=== PATIENT | female | born 1955 | race Caucasian/White ===

== ENCOUNTER 2017-01-28 15:20 | Emergency (ER) | payer BC | END 2017-01-28 16:12 | disposition home or self-care (01) | DX: S61.211A Laceration without foreign body of left index finger without damage to nail, initial encounter (principal); I10 Essential (primary) hypertension; Y92.009 Unspecified place in unspecified non-institutional (private) residence as the place of occurrence of the external cause; Y93.D9 Activity, other involving arts and handcrafts ==

== ENCOUNTER 2017-08-24 09:43 | Outpatient (CLI) | payer BC ==
[2017-08-24 10:11] LABS: BASOPHILS # (AUTO) 0.1 10^3/uL (0.0-0.1); EOSINOPHILS # (AUTO) 0.1 10^3/uL (0.0-0.7); EOSINOPHILS % (AUTO) 2.1 %; HCT - HEMATOCRIT 35.8 % (37.0-47.0); HGB - HEMOGLOBIN 12.4 g/dL (12.0-16.0); LYMPHOCYTES # (AUTO) 1.1 10^3/uL (1.5-3.5); LYMPHOCYTES % (AUTO) 35.5 %; MEAN CORPUSCULAR HEMOGLOBIN 31.9 pg (27.0-31.0); MEAN CORPUSCULAR HGB CONC 34.5 g/dL (32.0-36.0); MEAN CORPUSCULAR VOLUME 92.3 fL (81.0-99.0); MEAN PLATELET VOLUME 6.5 fL (7.9-10.8); MONOCYTES # (AUTO) 0.2 10^3/uL (0.0-1.0); MONOCYTES % (AUTO) 6.1 %; NEUTROPHILS # (AUTO) 1.6 10^3/uL (1.5-6.6); NEUTROPHILS % (AUTO) 53.3 %; RED BLOOD COUNT 3.88 10^6/uL (4.20-5.40); RED CELL DISTRIBUTION WIDTH 15.6 % (12.0-15.0); UNCORRECTED WHITE BLOOD COUNT 3.1 x10^3/uL; WHITE BLOOD COUNT 3.1 x10^3/uL (4.8-10.8)
== END 2017-08-24 09:44 | disposition home or self-care (01) ==
LOC: LAB 09:43
PROVIDERS: ATTEND Internal Medicine Medical Oncology
DX: C50.911 Malignant neoplasm of unspecified site of right female breast (principal)
CPT/HCPCS: 36415; 85025

== ENCOUNTER 2017-09-29 10:44 | Outpatient (CLI) | payer BC ==
[2017-09-29 11:01] LABS: BASOPHILS # (AUTO) 0.1 10^3/uL (0.0-0.1); BASOPHILS % (AUTO) 4.1 %; EOSINOPHILS # (AUTO) 0.1 10^3/uL (0.0-0.7); EOSINOPHILS % (AUTO) 4.7 %; HGB - HEMOGLOBIN 12.4 g/dL (12.0-16.0); LYMPHOCYTES # (AUTO) 0.9 10^3/uL (1.5-3.5); LYMPHOCYTES % (AUTO) 28.7 %; MEAN CORPUSCULAR HEMOGLOBIN 33.8 pg (27.0-31.0); MEAN CORPUSCULAR HGB CONC 34.5 g/dL (32.0-36.0); MEAN PLATELET VOLUME 6.7 fL (7.9-10.8); MONOCYTES # (AUTO) 0.2 10^3/uL (0.0-1.0); MONOCYTES % (AUTO) 6.6 %; NEUTROPHILS # (AUTO) 1.7 10^3/uL (1.5-6.6); NEUTROPHILS % (AUTO) 55.9 %; RED BLOOD COUNT 3.67 10^6/uL (4.20-5.40); RED CELL DISTRIBUTION WIDTH 20.1 % (12.0-15.0)
[2017-09-29 11:14] LABS: ALBUMIN/GLOBULIN RATIO 1.4 (1.0-2.2); BILIRUBIN,TOTAL 0.6 mg/dL (0.2-1.0); CREATININE 0.8 mg/dL (0.4-1.0); POTASSIUM 3.9 mmol/L (3.5-5.0); TOTAL PROTEIN 7.2 g/dL (6.7-8.2)
== END 2017-09-29 10:45 | disposition home or self-care (01) ==
LOC: LAB 10:44
PROVIDERS: ATTEND Internal Medicine Medical Oncology
DX: C50.919 Malignant neoplasm of unspecified site of unspecified female breast (principal)
CPT/HCPCS: 36415; 80053; 82378; 85025; 86300

== ENCOUNTER 2020-06-11 09:10 | Outpatient (CLI) | payer MEDICARE ==
[2020-06-11 09:34] LABS: CALCIUM 8.7 mg/dL (8.5-10.3); CREATININE 1.3 mg/dL (0.4-1.0)
== END 2020-06-11 09:11 | disposition home or self-care (01) ==
LOC: LAB 09:10
PROVIDERS: ATTEND Internal Medicine Hematology & Oncology
DX: C79.51 Secondary malignant neoplasm of bone (principal)
CPT/HCPCS: 36415; 80048

== ENCOUNTER 2020-06-12 13:15 | Outpatient (CLI) | payer MEDICARE ==
[2020-06-12 14:07] LABS: BILIRUBIN,URINE NEGATIVE (NEGATIVE); GLUCOSE, URINE (UA) NEGATIVE (NEGATIVE); KETONES,URINE (UA) NEGATIVE (NEGATIVE); LEUKOCYTE ESTERASE, URINE NEGATIVE (NEGATIVE); NITRITE,URINE NEGATIVE (NEGATIVE); OCCULT BLOOD,URINE NEGATIVE (NEGATIVE); PH,URINE 6.5 PH (5.0-7.5); PROTEIN,URINE NEGATIVE (NEGATIVE); UROBILINOGEN,URINE 0.2 (NORMAL) E.U./dL (NORMAL)
[2020-06-12 14:14] LABS: BACTERIA,URINE None Seen /HPF (None Seen); CLARITY,URINE CLEAR (CLEAR); RBC,URINE None Seen /HPF (0-5); SQUAMOUS EPITHELIAL CELL,UR NONE SEEN (<= Few)
== END 2020-06-12 13:16 | disposition home or self-care (01) ==
LOC: LAB 13:15
PROVIDERS: ATTEND Internal Medicine Hematology & Oncology
DX: R35.0 Frequency of micturition (principal)
CPT/HCPCS: 81001; 87086

== ENCOUNTER 2020-06-18 09:44 | Outpatient (CLI) | payer MEDICARE ==
[2020-06-18 10:14] LABS: CALCIUM 8.9 mg/dL (8.5-10.3)
== END 2020-06-18 09:45 | disposition home or self-care (01) ==
LOC: LAB 09:44
PROVIDERS: ATTEND Internal Medicine Hematology & Oncology
DX: C79.51 Secondary malignant neoplasm of bone (principal)
CPT/HCPCS: 36415; 80048

== ENCOUNTER 2020-06-24 16:30 | Emergency (ER) | payer MEDICARE ==
[2020-06-24] MEDS: HYDROmorphone 1 MG/ML CARPUJECT IVP STA (18:13)
[2020-06-24] MEDS: SODIUM CHLORIDE 0.9% 1,000 ML IV STA ×2 (18:14)
--- NOTE | 2020-06-24 18:24 | ED Physician Documentation ---
History of Present Illness - Stated complaint Stated Complaint: RX REACTION - Chief complaint Chief Complaint: General - History obtained from History obtained from: Patient, Family - History of Present Illness Timing: Prior to arrival, How many days ago (6) - Additonal information Additional information: 65-year-old female presents to the emergency department for evaluation and treatment of mouth sores that began about 5 days ago. Unfortunately she has a history of breast cancer with metastasis to the bone. She is being treated with an agent called Piqray And received her last infusion on Monday.However over the last 5 days she has developed a shallow ulcerations on the buccal mucosa as well as cracking and peeling of her lips. It is becoming increasingly difficult to eat or swallow secondary to the pain. She denies any cough or fevers. She denies any vaginal discharge or bleeding she has no rectal bleeding. She has no abdominal pain. Does not have any skin rash. Review of Systems Constitutional: denies: Fever, Chills Throat: reports: Oral lesions / sores. denies: Sore throat, Swollen tonsils, Swallowed foreign body Cardiac: reports: Palpitations. 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, Breast cancer : None HEENT: None Psych: Depression Musculoskeletal: None Derm: None - Past Surgical History /NATURALIZATION EXAMINER: section, Other - Present Medications Home Medications: Ambulatory Orders Medication Instructions Recorded Confirmed Atorvastatin Calcium [Lipitor] 40 mg PO 01/28/17 DULoxetine [Cymbalta] 20 mg PO DAILY 01/28/17 01/28/17 Fulvestrant [Faslodex] 250 mg IM ONCE 01/28/17 01/28/17 buPROPion [Wellbutrin Sr] 100 mg PO BID 01/28/17 01/28/17 - Allergies Allergies/Adverse Reactions: Allergies Allergy/AdvReac Type Severity Reaction Status Date / Time No Known Drug Allergies Allergy Verified 03/11/17 15:34 - Social History Does the pt smoke?: No Smoking Status: Never smoker Does the pt have substance abuse?: No - Immunizations Immunizations: TDAP current <10years PD ED PE EXPANDED - General General: Alert, No acute distress - HEENT HEENT: Dry mucous membranes, Pharyngeal erythema, Oral lesions / sores (Multiple shallow ulcerations on the buccal mucosa. Uvula is midline. Posterior oropharynx is erythematous but without exudate. Patient able to swallow normally. Lips on the mouth have a large amount of peeling scabbing and cracking sores.), Other - Neck Neck: Supple w/out meningeal sx. No: Adenopathy - Cardiac Cardiac: Regular Rate, Radial strong equal, Pedal strong equal, Cap refill < 2 sec - Respiratory Respiratory: Clear to ausultation hannah. No: Distress, Labored - Abdomen Abdomen: Normal Bowel sounds. No: Tender to palpation - Female Female : Normal external. No: Vaginal Bleeding, Vaginal Discharge, Tissue present - Back Back: Normal exam. No: Vertebral tenderness, Soft tissue tenderness - Neuro Neuro: Alert and Oriented X 3. No: CNII-XII intact, CN deficit - GCS Eye Opening: Spontaneous Motor: Obeys Commands Verbal: Oriented Total: 15 Results - Vitals Vitals: Vital Signs - 24 hr 06/24/20 06/24/20 06/24/20 16:34 18:16 19:26 Temperature 36.6 C Heart Rate 97 84 86 Respiratory 16 16 16 Rate Blood Pressure 136/65 H 117/63 121/69 O2 Saturation 96 95 96 Oxygen O2 Source Room air PD MEDICAL DECISION MAKING - ED course Complexity details: d/w patient, d/w family ED course: 65-year-old female presents to the emergency department with 5 days of oral lesions and appearance of a stomatitis likely related to the Piqray that she is taking for her metastatic breast cancer. - He has no cough or fevers. She does not have any evidence of other mucosal involvement specifically involving the lungs or the genital tract.In addition there does not appear to be any superimposed yeast or thrush - Because she has been having a difficult time eating she has become somewhat dehydrated therefore she was given 2 L of IV fluids here in the emergency department as well as some Dilaudid for pain control - Patient is using a lidocaine mouth rinse at home for analgesia. I will ahand write an rx for magic mouth wash as well Departure - Departure Disposition: 01 Home, Self Care Clinical Impression: Stomatitis and mucositis Condition: Serious Record reviewed to determine appropriate education?: Yes Comments: Hailey the sores in your mouth is a condition called stomatitis or mucositis. This is likely from the Piqray that you are taking for your breast cancer. However on exam I think that it is only in your mouth and it does not appear to involve your lungs or your genital mucosa. The biggest risk for you at this stage is dehydration simply because it is too painful to eat or swallow. Continue to use the lidocaine at home to help numb your mouth. I have also written a prescription for something called Magic mouthwash. Please take this to a pharmacy tomorrow and have it filled. I want you to take frequent sips of water or protein shakes to make sure that you maintain hydration and nutrition. This typically takes 1 to 2 weeks before it starts to improve If you feel that your symptoms are worsening, you cannot swallow at all, you begin to drool, have fevers a cough or bloody discharge from your genital track then please return immediately to the emergency department In addition please follow-up closely with your oncologist and your primary care doctor
[2020-06-24 20:36] VITALS: BP 140/60
== END 2020-06-24 20:35 | disposition home or self-care (01) ==
LOC: ED 16:30
DX: K12.1 Other forms of stomatitis (principal); K12.30 Oral mucositis (ulcerative), unspecified; E86.0 Dehydration; C50.919 Malignant neoplasm of unspecified site of unspecified female breast; C79.51 Secondary malignant neoplasm of bone; I10 Essential (primary) hypertension
CPT/HCPCS: 96361; 96374; 99284; 99285; J1170

== ENCOUNTER 2020-08-03 13:21 | Outpatient (CLI) | payer MEDICARE ==
[2020-08-03 13:37] LABS: BASOPHILS # (AUTO) 0.1 10^3/uL (0.0-0.1); BASOPHILS % (AUTO) 1.8 %; EOSINOPHILS % (AUTO) 0.4 %; LYMPHOCYTES # (AUTO) 1.1 10^3/uL (1.5-3.5); LYMPHOCYTES % (AUTO) 19.9 %; MEAN CORPUSCULAR HEMOGLOBIN 30.6 pg (27.0-31.0); MEAN CORPUSCULAR HGB CONC 33.5 g/dL (32.0-36.0); MEAN CORPUSCULAR VOLUME 91.5 fL (81.0-99.0); MEAN PLATELET VOLUME 8.2 fL (7.9-10.8); MONOCYTES # (AUTO) 0.9 10^3/uL (0.0-1.0); MONOCYTES % (AUTO) 16.8 %; NEUTROPHILS # (AUTO) 3.2 10^3/uL (1.5-6.6); NEUTROPHILS % (AUTO) 58.1 %; PLT - PLATELET COUNT 334 10^3/uL (130-450); RED BLOOD COUNT 4.57 10^6/uL (4.20-5.40); RED CELL DISTRIBUTION WIDTH 16.9 % (12.0-15.0); WHITE BLOOD COUNT 5.4 x10^3/uL (4.8-10.8)
[2020-08-03 13:46] LABS: ALBUMIN 3.9 g/dL (3.2-5.5); ALBUMIN/GLOBULIN RATIO 1.1 (1.0-2.2); BILIRUBIN,TOTAL 0.6 mg/dL (0.2-1.0); CALCIUM 9.4 mg/dL (8.5-10.3); CREATININE 0.9 mg/dL (0.4-1.0); TOTAL PROTEIN 7.3 g/dL (6.7-8.2)
== END 2020-08-03 13:22 | disposition home or self-care (01) ==
LOC: LAB 13:21
PROVIDERS: ATTEND Internal Medicine Hematology & Oncology
DX: C50.911 Malignant neoplasm of unspecified site of right female breast (principal)
CPT/HCPCS: 36415; 80053; 85025

== ENCOUNTER 2020-09-13 12:11 | Emergency (ER) | payer MEDICARE ==
[2020-09-13 12:27] VITALS: BP 127/88
[2020-09-13] MEDS ORDERED: PROPARACAINE 0.5% OPHTH DROPS 15 ML EACHEYE STA (12:28)
--- NOTE | 2020-09-13 12:45 | ED Physician Documentation ---
PD HPI OPHTHO - Stated complaint Stated Complaint: LT EYE PX - Chief complaint Chief Complaint: Heent - History obtained from History obtained from: Patient - Additional information Additional information: This is a very pleasant 65-year-old woman with history of breast cancer, she is on chemotherapy, it sounds like it is stage IV. Current chemotherapy eribulin. She presents with gradual onset left eye pain starting today, watery drainage and inflammation and some light sensitivity. She is a history of cataract repair, otherwise does not wear contacts and feels like her vision is unaffected. 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 09/13/20 Ophthalmic Ointment] Ketorolac Tromethamine 1 drops OP QID #5 ml 09/13/20 - Allergies Allergies/Adverse Reactions: Allergies Allergy/AdvReac Type Severity Reaction Status Date / Time No Known Drug Allergies Allergy Verified 09/13/20 12:23 - Social History Does the pt smoke?: No Smoking Status: Never smoker Does the pt have substance abuse?: No - Immunizations Immunizations: TDAP current <10years PD ED PE NORMAL - Vitals Vital signs reviewed: Yes - General General: Alert and oriented X 3, No acute distress - HEENT HEENT: Other (She has diffuse conjunctivitis of the left eye with watery drainage. Pupillary reaction is normal. No contralateral pain. There is no fluorescein uptake. Terrence-Pen 16 on the right, 14 on the left.) - Neuro Neuro: Alert and oriented X 3, Normal speech Results - Vitals Vitals: Vital Signs - 24 hr 09/13/20 12:23 Temperature 36.6 C Heart Rate 110 H Respiratory 16 Rate Blood Pressure 127/88 H O2 Saturation 96 Oxygen O2 Source Room air PD MEDICAL DECISION MAKING - ED course ED course: Reviewed her chemotherapeutic agents, It is not associated with ophthalmologic issues. Departure - Departure Disposition: 01 Home, Self Care Clinical Impression: Conjunctivitis Qualifiers: Conjunctivitis type: acute Acute conjunctivitis type: unspecified Laterality: left Qualified Code(s): H10.32 - Unspecified acute conjunctivitis, left eye Condition: Good Record reviewed to determine appropriate education?: Yes Instructions: ED Conjunctivitis Nonspecific Prescriptions: Erythromycin Base [Erythromycin Ophthalmic Ointment] 1 appful OP 5XD 7 Days #1 oint...g. Ketorolac Tromethamine 1 drops OP QID #5 ml Comments: Prescriptions were sent electronically to [facility]. Follow-up with your director transportation in 2 to 3 days if not improving, return if worse. Discharge Date/Time: 09/13/20 12:51
== END 2020-09-13 12:51 | disposition home or self-care (01) ==
LOC: ED 12:11
DX: H10.32 Unspecified acute conjunctivitis, left eye (principal); I10 Essential (primary) hypertension
CPT/HCPCS: 99282; 99283; J3490